=== PATIENT | male | born 1985 ===

== ENCOUNTER 2017-09-22 10:35 | Inpatient (IN) | payer BC ==
[2017-09-22] MEDS ORDERED: SODIUM CHLORIDE 0.9% 500 ML IV STA ×2 (11:03→12:24)
--- NOTE | 2017-09-22 11:08 | ED ---
General Adult HPI - General Chief complaint: Abdominal Pain Stated complaint: abdominal pain Source: patient Mode of arrival: ambulatory Limitations: no limitations - History of Present Illness Initial comments: Dictation was produced using [employer] dictation software. please excuse any grammatical, word or spelling errors. Chief Complaint: 32-year-old male with past medical history of appendectomy presents with right upper quadrant pain 5 days. History of Present Illness: Patient states that he has been having right upper quadrant pain for 5 days. He states the pain is intermittent and cramping. States that he's been feeling nauseated but no vomiting. Denies any fevers or confusion. Patient has been having some darker stools. Patient denies any radiation of the pain. States that it's intermittent and episodic without any mitigating or exacerbating factors. He is a tobacco abuser and chronic caffeine drinker. The ROS documented in this emergency department record has been reviewed and confirmed by me. Those systems with pertinent positive or negative responses have been documented in the HPI. All other systems are other negative and/or noncontributory. - Related Data Home Medications Medication Instructions Recorded Confirmed Naproxen Sodium [Aleve] 220 mg PO Q12HR PRN 09/22/17 09/22/17 Allergies Allergy/AdvReac Type Severity Reaction Status Date / Time No Known Allergies Allergy Verified 09/22/17 12:09 Review of Systems ROS Statement: Those systems with pertinent positive or pertinent negative responses have been documented in the HPI. ROS Other: All systems not noted in ROS Statement are negative. Past Medical History Past Medical History: No Reported History History of Any Multi-Drug Resistant Organisms: None Reported Past Surgical History: Appendectomy Past Psychological History: No Psychological Hx Reported Smoking Status: Current every day smoker Past Alcohol Use History: Occasional Past Drug Use History: None Reported General Exam - General Exam Comments Initial Comments: PHYSICAL EXAM: General Impression: Alert and oriented x3, not in acute distress HEENT: Normocephalic atraumatic, extra-ocular movements intact, pupils equal and reactive to light bilaterally, mucous membranes moist. Cardiovascular: Heart regular rate and rhythm, S1&S2 audible, no murmurs, rubs or gallops Chest: Lungs clear to auscultation bilaterally, no rhonchi, no wheeze, no rales Abdomen: Bowel sounds present, abdomen soft, tenderness in her right upper quadrant, positive Finn's sign Musculoskeletal: Pulses present and equal in all extremities, no peripheral edema Motor: Power 5/5 bilaterally, no focal deficits noted Neurological: CN II-XII grossly intact, no focal motor or sensory deficits noted Skin: Intact with no visualized rashes Psych: Normal affect and mood Limitations: no limitations Course Vital Signs 09/22/17 10:40 Temperature 97.8 F Pulse Rate 60 Respiratory 18 Rate Blood Pressure 165/110 O2 Sat by Pulse 100 Oximetry Medical Decision Making - Medical Decision Making ED course: 32-year-old male presents with chief complaint of right upper quadrant pain. Vital signs upon arrival are within acceptable limitsLaboratory evaluation obtained. CBC is unremarkable. Metabolic panel shows elevation in renal markers with a creatinine of 2.40 and BUNs 24. Rest metabolic panel is negative. Urinalysis is negative. It is unclear what is causing patient's elevation in renal markers. Presentation consistent with acute kidney injury. 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 He does not look clinically dehydrated. Ultrasound of the abdomen was obtained showing no acute processes. KUB shows nonspecific abdomen. Pending computed tomography scan. Patient be admitted for acute kidney injury. Consultation to nephrology was ordered. She given intravenous fluids. EKG interpretation: Ventricular rate 77, sinus bradycardia, NH interval 136, QS 94, QTC 410. No NH prolongation, no QTC prolongation, no ST or T-wave changes noted. Nonspecific isolated T-wave inversion in lead 3. Overall, this EKG is unremarkable - Lab Data Result diagrams: 09/22/17 11:05 09/22/17 11:05 Lab Results 09/22/17 09/22/17 09/22/17 Range/Units 11:05 11:05 11:05 WBC 10.3 (3.8-10.6) k/uL RBC 4.71 (4.30-5.90) m/uL Hgb 14.1 (13.0-17.5) gm/dL Hct 42.0 (39.0-53.0) % MCV 89.2 (80.0-100.0) fL MCH 29.9 (25.0-35.0) pg MCHC 33.5 (31.0-37.0) g/dL RDW 13.2 (11.5-15.5) % Plt Count 229 (150-450) k/uL Neutrophils % 73 % Lymphocytes % 18 % Monocytes % 6 % Eosinophils % 1 % Basophils % 0 % Neutrophils # 7.5 (1.3-7.7) k/uL Lymphocytes # 1.8 (1.0-4.8) k/uL Monocytes # 0.7 (0-1.0) k/uL Eosinophils # 0.1 (0-0.7) k/uL Basophils # 0.0 (0-0.2) k/uL Sodium 141 (137-145) mmol/L Potassium 4.7 (3.5-5.1) mmol/L Chloride 108 H (98-107) mmol/L Carbon Dioxide 22 (22-30) mmol/L Anion Gap 11 mmol/L BUN 24 H (9-20) mg/dL Creatinine 2.40 H (0.66-1.25) mg/dL Est GFR (CKD-EPI)AfAm 40 (>60 ml/min/1.73 sqM) Est GFR (CKD-EPI)NonAf 35 (>60 ml/min/1.73 sqM) Glucose 86 (74-99) mg/dL Calcium 9.4 (8.4-10.2) mg/dL Total Bilirubin 0.9 (0.2-1.3) mg/dL AST 42 (17-59) U/L ALT 51 (21-72) U/L Alkaline Phosphatase 110 (38-126) U/L Creatine Kinase 279 H (55-170) U/L Total Protein 7.6 (6.3-8.2) g/dL Albumin 4.5 (3.5-5.0) g/dL Lipase 61 (23-300) U/L Urine Color Urine Appearance (Clear) Urine pH (5.0-8.0) Ur Specific [place] (1.001-1.035) Urine Protein (Negative) Urine Glucose (UA) (Negative) Urine Ketones (Negative) Urine Blood (Negative) Urine Nitrite (Negative) Urine Bilirubin (Negative) Urine Urobilinogen (<2.0) mg/dL Ur Leukocyte Esterase (Negative) 09/22/17 Range/Units 11:40 WBC (3.8-10.6) k/uL RBC (4.30-5.90) m/uL Hgb (13.0-17.5) gm/dL Hct (39.0-53.0) % MCV (80.0-100.0) fL MCH (25.0-35.0) pg MCHC (31.0-37.0) g/dL RDW (11.5-15.5) % Plt Count (150-450) k/uL Neutrophils % % Lymphocytes % % Monocytes % % Eosinophils % % Basophils % % Neutrophils # (1.3-7.7) k/uL Lymphocytes # (1.0-4.8) k/uL Monocytes # (0-1.0) k/uL Eosinophils # (0-0.7) k/uL Basophils # (0-0.2) k/uL Sodium (137-145) mmol/L Potassium (3.5-5.1) mmol/L Chloride (98-107) mmol/L Carbon Dioxide (22-30) mmol/L Anion Gap mmol/L BUN (9-20) mg/dL Creatinine (0.66-1.25) mg/dL Est GFR (CKD-EPI)AfAm (>60 ml/min/1.73 sqM) Est GFR (CKD-EPI)NonAf (>60 ml/min/1.73 sqM) Glucose (74-99) mg/dL Calcium (8.4-10.2) mg/dL Total Bilirubin (0.2-1.3) mg/dL AST (17-59) U/L ALT (21-72) U/L Alkaline Phosphatase (38-126) U/L Creatine Kinase (55-170) U/L Total Protein (6.3-8.2) g/dL Albumin (3.5-5.0) g/dL Lipase (23-300) U/L Urine Color Light Yellow Urine Appearance Clear (Clear) Urine pH 5.5 (5.0-8.0) Ur Specific [place] 1.005 (1.001-1.035) Urine Protein Negative (Negative) Urine Glucose (UA) Negative (Negative) Urine Ketones Negative (Negative) Urine Blood Negative (Negative) Urine Nitrite Negative (Negative) Urine Bilirubin Negative (Negative) Urine Urobilinogen <2.0 (<2.0) mg/dL Ur Leukocyte Esterase Negative (Negative) Disposition Clinical Impression: Acute kidney injury Disposition: ADMITTED IP TO THIS [facility] Condition: Good Referrals: None,Stated [Primary Care Provider] - 1-2 days Time of Disposition: 13:58
[2017-09-22 11:16] LABS: Basophils % (A) 0 %; Eosinophils # (A) 0.1 k/uL (0-0.7); Eosinophils % (A) 1 %; HGB 14.1 gm/dL (13.0-17.5); Lymphocytes # (A) 1.8 k/uL (1.0-4.8); Lymphocytes % (A) 18 %; MCH 29.9 pg (25.0-35.0); MCHC 33.5 g/dL (31.0-37.0); MCV 89.2 fL (80.0-100.0); Mean Platelet Volume 7.2; Monocytes # (A) 0.7 k/uL (0-1.0); Monocytes % (A) 6 %; Neutrophils # (A) 7.5 k/uL (1.3-7.7); Neutrophils % (A) 73 %; Platelet Count 229 k/uL (150-450); RBC 4.71 m/uL (4.30-5.90); RDW 13.2 % (11.5-15.5); WBC 10.3 k/uL (3.8-10.6)
[2017-09-22 11:24] LABS: Albumin 4.5 g/dL (3.5-5.0); Calcium 9.4 mg/dL (8.4-10.2); Potassium 4.7 mmol/L (3.5-5.1); Total Bilirubin 0.9 mg/dL (0.2-1.3); Total Protein 7.6 g/dL (6.3-8.2)
[2017-09-22 11:53] LABS: Appearance,Urine Clear (Clear); Bilirubin,Urine Negative (Negative); Blood,Urine Negative (Negative); Color,Urine Light Yellow; Glucose,Urine (UA) Negative (Negative); Ketones,Urine Negative (Negative); Leukocyte Esterase,Urine Negative (Negative); Nitrite,Urine Negative (Negative); PH, Urine 5.5 (5.0-8.0); Protein,Urine Negative (Negative); Specific Gravity,Urine 1.005 (1.001-1.035); Urobilinogen,Urine <2.0 mg/dL (<2.0)
--- NOTE | 2017-09-22 11:56 | US ---
EXAMINATION TYPE: US abdomen complete DATE OF EXAM: 09/22/2017 COMPARISON: NONE CLINICAL HISTORY: abdominal pain. Abdomen pain and nausea x 5 days, history of appendectomy EXAM MEASUREMENTS: Liver Length: 13.7 cm Gallbladder Wall: 0.2 cm CBD: 0.4 cm Spleen: 10.4 cm Right Kidney: 12.1 x 5.7 x 5.6 cm Left Kidney: 11.9 x 5.4 x 5.8 cm Pancreas: obscured by overlying midline bowel gas Liver: wnl Gallbladder: wnl Evidence for sonographic Finn's sign: no CBD: visualized portions wnl, limited by overlying bowel gas Spleen: wnl Right Kidney: wnl Left Kidney: wnl Upper IVC: wnl Abd Aorta: visualized portions wnl, limited by overlying midline bowel gas IMPRESSION: 1. No acute process.
--- NOTE | 2017-09-22 11:58 | XR ---
EXAMINATION TYPE: XR KUB DATE OF EXAM: 09/22/2017 COMPARISON: NONE HISTORY: Right upper quadrant pain TECHNIQUE: One view abdominal series FINDINGS: The osseous structures are intact. The bowel gas pattern is nonspecific. Few prominent small bowel l oops are seen in the abdomen with an air-fluid level in the midabdomen. Lung bases are clear. IMPRESSION: 1. Nonspecific abdomen. There are few air-fluid levels and prominent small bowel loops in the abdome n which could be seen with an enteritis or ileus. Partial obstruction not entirely excluded, correlat e clinically.
[2017-09-22] MEDS ORDERED: NALOXONE 0.4 MG/ML 1 ML VIAL IV PRN (13:56)
[2017-09-22] MEDS ORDERED: SODIUM CHLORIDE 0.9% 1,000 ML IV STA (14:01)
--- NOTE | 2017-09-22 14:02 | CT ---
EXAMINATION TYPE: CT abdomen pelvis wo con DATE OF EXAM: 09/22/2017 HISTORY: RUQ pain CT DLP: 692 mGycm. Automated Exposure Control for Dose Reduction was Utilized. TECHNIQUE: CT scan of the abdomen and pelvis is performed without oral or IV contrast. COMPARISON: Complete abdominal ultrasound earlier today FINDINGS: Within the limitations of a non-contrast study, the following observations are made. LUNG BASES: Dependent atelectasis in both bases is present. There is additional patchy bibasilar line ar scarring and/or atelectasis. LIVER/GB: No inflammatory change surrounding the gallbladder. PANCREAS: No significant abnormality is seen. SPLEEN: No significant abnormality is seen. ADRENALS: No significant abnormality is seen. KIDNEYS: No renal stones or hydronephrosis is present bilaterally. BOWEL: Evaluation of bowel is suboptimal secondary to lack of enteric contrast. There is no suspiciou s small or large bowel dilatation. Appendix is not seen with certainty but there is no evidence of in flammatory change at base of cecum. GENITAL ORGANS: No gross abnormality seen. LYMPH NODES: No greater than 1cm abdominal or pelvic lymph nodes are appreciated. OSSEOUS STRUCTURES: No significant abnormality is seen. OTHER: Suspected dystrophic calcification in the upper pelvis is seen best coronal image 33 just supe rior to the bladder. IMPRESSION: No bowel obstruction is seen. No suspicious acute finding on noncontrast CT.
[2017-09-22] MEDS: MORPHINE SULFATE 4 MG/ML SYRINGE IVP PRN ×2 (15:43→20:08)
--- NOTE | 2017-09-22 16:33 | US ---
EXAMINATION TYPE: US kidneys/renal and bladder DATE OF EXAM: 09/22/2017 COMPARISON: CT abdomen and pelvis earlier today CLINICAL HISTORY: RUQ pain with acute kidney injury. high BP, patient states it is always high and hi s physician never says anything about it, not on medication for HTN, per Dr Jaffe's request did ass essment to r/o renal artery clot EXAM MEASUREMENTS: Right Kidney: 11.3 x 6.4 x 5.8 cm Left Kidney: 12.2 x 4.1 x 6.8 cm Right Kidney: No hydronephrosis or masses seen, patency seen within distal portion of the renal arter y at level of renal pelvis Left Kidney: No hydronephrosis or masses seen, patency seen within distal portion of the renal artery at level of renal pelvis Bladder: pt voided just prior to exam There is no evidence for hydronephrosis at this point in time. No nephrolithiasis is seen. No tammie s are identified. The urinary bladder is suboptimally evaluated due to poor distention. IMPRESSION: No hydronephrosis is evident bilaterally. Satisfactory blood flow in bilateral distal renal arteries at renal hilum level is documented.
[2017-09-22 16:56] VITALS: BMI 29.0
[2017-09-22] MEDS ORDERED: HYDROcodone/APAP 5-325MG 1 EACH TAB PO STA (17:52)
[2017-09-22] MEDS: PANTOPRAZOLE 40 MG/10 ML VIAL IVP SCH (20:09)
--- NOTE | 2017-09-22 23:30 | P.HPIM ---
History of Present Illness H&P Date: 09/22/17 Chief Complaint: Right upper quadrant pain Patient is a 32-year-old male without significant past history came to ER with complaints of abdominal pain mainly in the right upper quadrant which has been present for the past 5-6 days. Pain is intermittent and crampy. Patient has been playing nauseated and no episodes of vomiting otherwise. Denied diarrhea. Denied any fever or chills. Denied any jaundice. No complaints of chest pain or shortness of breath. Patient has been taking Aleve to improve pain for the past 3 days. Patient notices some darker stools recently. No radiation of the pain. No alcohol use. Patient otherwise a tobacco user and caffeine drinker. No cough or sputum production. KUB x-ray showed nonspecific abdominal. there are few air fluid levels prominent small bowel loops in the abdomen which could be seen with a antritis or ileus. Possible obstruction cannot be excluded. Ultrasound kidney showed no hydronephrosis is evident bilaterally. Ultrasound ABDOMEN showed no acute process CT abdomen and pelvis without contrast showed no bowel obstruction. no suspicious acute abdominal findings. Hemoglobin 14.1 BUN 24 , creatinine 2.4 Review of Systems Constitutional: Patient denies any fever or chills . No generalized weakness or weight loss. Abdomen: Patient does have right upper quadrant pain. And nausea. Cardiovascular: Patient denies any chest pain or short of breath no palpitations. Respiratory: patient denied any cough is from production. No shortness of breath Neurologic: Patient denied any numbness or tingling headache. Musculoskeletal: Patient denies any complaints of joint swelling or deformity. Skin: Negative Psychiatric: Negative Endocrine: No heat or cold intolerance. No recent weight gain. Genitourinary: No dysuria or hematuria. All other 14 point ROS negative except the above Past Medical History Past Medical History: No Reported History History of Any Multi-Drug Resistant Organisms: None Reported Past Surgical History: Appendectomy Past Psychological History: No Psychological Hx Reported Smoking Status: Current every day smoker Past Alcohol Use History: Occasional Past Drug Use History: None Reported - Past Family History Father Family Medical History: Diabetes Mellitus Medications and Allergies Home Medications Medication Instructions Recorded Confirmed Type Naproxen Sodium [Aleve] 220 mg PO Q12HR PRN 09/22/17 09/22/17 History Allergies Allergy/AdvReac Type Severity Reaction Status Date / Time No Known Allergies Allergy Verified 09/22/17 12:09 Physical Exam Vitals: Vital Signs Temp Pulse Resp BP Pulse Ox 09/22/17 16:00 70 18 150/88 100 09/22/17 15:26 98.0 F 77 18 151/86 100 09/22/17 10:40 97.8 F 60 18 165/110 100 Intake and Output 09/22/17 09/22/17 09/22/17 06:59 14:59 22:59 Other: Weight 79.379 kg PHYSICAL EXAMINATION: Patient is lying in the bed comfortably, no acute distress, awake alert and oriented.. HEENT: Normocephalic. Neck is supple. Pupils reactive. Nostrils clear. Oral cavity is moist. Ears reveal no drainage. Neck reveals no JVD, carotid bruits, or thyromegaly. CHEST EXAMINATION: Trachea is central. Symmetrical expansion. Lung potter clear to auscultation and percussion. CARDIAC: Normal S1, S2 with no gallops. No murmurs ABDOMEN: Soft. Right upper quadrant tenderness. No guarding no rigidity. Bowel sounds normal. No organomegaly. No abdominal bruits. Extremities: reveal no edema. No clubbing or cyanosis Neurologically awake, alert, oriented x3 with well-coordinated movements. No focal deficits noted Skin: No rash or skin lesions. Psychiatric: Coperative. Nonsuicidal Musculoskeletal: No joint swelling or deformity. Normal range of motion. Results CBC & Chem 7: 09/22/17 11:05 09/22/17 11:05 Labs: Abnormal Lab Results - Last 24 Hours (Table) 09/22/17 09/22/17 Range/Units 11:05 11:05 Chloride 108 H (98-107) mmol/L BUN 24 H (9-20) mg/dL Creatinine 2.40 H (0.66-1.25) mg/dL Creatine Kinase 279 H (55-170) U/L Thrombosis Risk Factor Assmnt - DVT/VTE Prophylaxis DVT/VTE Prophylaxis: Pharmacologic Prophylaxis ordered Assessment and Plan Assessment: Right upper quadrant pain. Possible peptic ulcer disease. Workup including KUB x-ray, ultrasound abdomen and CT abdomen is negative. No elevated liver enzymes, lipase and amylase. Patient will be started on PPI and pain management. Check FOBT. Consider GI consultation. Acute kidney injury. Due to volume depletion and possible medication induced. Consulted nephrology. Current with the fluids and repeat levels tomorrow. DVT prophylaxis with SCDs Time with Patient: Greater than 30
[2017-09-23] MEDS: MORPHINE SULFATE 4 MG/ML SYRINGE IVP PRN ×5 (01:52→19:13)
[2017-09-23] MEDS: PANTOPRAZOLE 40 MG/10 ML VIAL IVP SCH (08:19)
[2017-09-23 08:22] LABS: Basophils % (A) 0 %; Eosinophils # (A) 0.1 k/uL (0-0.7); Eosinophils % (A) 1 %; HCT 40.5 % (39.0-53.0); HGB 13.5 gm/dL (13.0-17.5); Lymphocytes # (A) 1.4 k/uL (1.0-4.8); Lymphocytes % (A) 16 %; MCH 29.9 pg (25.0-35.0); MCHC 33.4 g/dL (31.0-37.0); MCV 89.7 fL (80.0-100.0); Mean Platelet Volume 7.2; Monocytes # (A) 0.6 k/uL (0-1.0); Monocytes % (A) 7 %; Neutrophils # (A) 6.5 k/uL (1.3-7.7); Neutrophils % (A) 74 %; Platelet Count 218 k/uL (150-450); RBC 4.52 m/uL (4.30-5.90); WBC 8.7 k/uL (3.8-10.6)
[2017-09-23 08:38] LABS: Calcium 8.4 mg/dL (8.4-10.2); Potassium 5.8 mmol/L (3.5-5.1)
--- NOTE | 2017-09-23 12:48 | P.NPCON ---
History of Present Illness - Reason for Consult Consult date: 09/23/17 acute renal failure - Chief Complaint Acute kidney injury - History of Present Illness This is a 32-year-old male seen in consultation because of an elevated creatinine. He came in with a 5-6 days history of right upper quadrant pain which was fairly severe and non-remitting. No radiation. No history of hematuria kidney stones no family history of kidney disease. He did take Aleve for a few days. No history of taking any antibiotics. No nausea vomiting diarrhea. No history of any bladder dysfunction. He has had appendectomy in the past. Extensive workup has revealed no significant explanation for his right upper quadrant pain. Amylase lipase normal ultrasound of the abdomen and computed tomography scan of the abdomen was unremarkable except for a possible phlebolith in the upper pelvis just superior to the bladder area. No hydronephrosis no gallstones or kidney stones. His past history is unremarkable. He works building complains. No history of taking any herbs, substance abuse. No history of taking creatinine Past Medical History Past Medical History: No Reported History History of Any Multi-Drug Resistant Organisms: None Reported Past Surgical History: Appendectomy Past Anesthesia/Blood Transfusion Reactions: No Reported Reaction Past Psychological History: No Psychological Hx Reported Smoking Status: Current every day smoker Past Alcohol Use History: Occasional Past Drug Use History: None Reported - Past Family History Father Family Medical History: Diabetes Mellitus Medications and Allergies Home Medications Medication Instructions Recorded Confirmed Type Naproxen Sodium [Aleve] 220 mg PO Q12HR PRN 09/22/17 09/22/17 History Allergies Allergy/AdvReac Type Severity Reaction Status Date / Time No Known Allergies Allergy Verified 09/22/17 12:09 Physical Exam Vitals: Vital Signs Temp Pulse Pulse Resp BP BP Pulse Ox 09/23/17 06:00 97.0 F L 69 14 104/67 99 09/22/17 23:00 98.0 F 60 14 140/84 99 09/22/17 16:30 98.3 F 58 L 20 146/90 100 09/22/17 16:00 70 18 150/88 100 09/22/17 15:26 98.0 F 77 18 151/86 100 Intake and Output 09/22/17 09/23/17 09/23/17 22:59 06:59 14:59 Other: Weight 79 kg On examination he is a well-built healthy looking young male. HEENT exam no JVP lymphadenopathy thyromegaly neck is supple no facial asymmetry Lungs are clear to auscultation good air entry bilaterally Heart sounds are unremarkable for any murmur rub gallop Abdomen soft nontender but, Finn's signugh ultrasound and computed tomography scan did not show any gallstones or cholecystitis. Extremity exam was no edema warm to touch no skin rashes Neurologically awake alert oriented. Results - Lab Results Most recent lab results Calcium 8.4 mg/dL (8.4-10.2) 09/23/17 07:53 09/23/17 07:53 09/23/17 07:53 Assessment and Plan Assessment: Impression 1. Acute kidney injury, likely secondary to nonsteroidal use. May be an element of volume depletion from decreased intake from the right upper quadrant pain. 2. Hyperkalemia secondary acute kidney injury and nonsteroidal use. 3. No previous creatinines available's. 4. Right upper quadrant pain for 7 days with normal workup and no good explanation. Possible duodenal ulcer is a consideration. Recommendation 1. Continue IV fluids normal saline at 100 and hour for the next 24 hours. 2. Avoid all nephrotoxic medications and diet studies. 3. Workup for right upper quadrant pain is underway with a GI consult for possible EGD. 4. Will monitor at lites been creatinine tomorrow. If there is no improvement or worsening we'll consider biopsying his kidney and further doing serological workup Thank you for this consultation and continue follow with you closely
[2017-09-23] MEDS: SODIUM CHLORIDE 0.45% 1,000 ML IV SCH (13:16)
[2017-09-24] MEDS: SODIUM CHLORIDE 0.45% 1,000 ML IV SCH ×2 (06:09→16:26)
[2017-09-24] MEDS ORDERED: LIDOCAINE 1% INJ 10MG/ML (20 ML MDV) ONE (07:15)
[2017-09-24] MEDS ORDERED: PROPOFOL 10 MG/ML 20 ML VIAL IV ONE (07:15)
[2017-09-24] MEDS ORDERED: IV FLUID CONTINUATION 1,000 ML IV ONE (07:16)
--- NOTE | 2017-09-24 07:40 | P.PCN ---
Date of Procedure: 09/24/17 Procedure(s) Performed: Procedure: Esophagogastroduodenoscopy and biopsy. Preoperative diagnosis: Unexplained abdominal pain, rule out peptic ulcer disease. Postoperative diagnosis: 1. Mild gastritis and duodenitis with no ulcers or gastric outlet obstruction. 2. Biopsies obtained from the duodenum, antrum and esophagus. Preparation and sedation: Was provided by anesthesia. Brief clinical history: The patient is a 32-year-old male who was admitted through the emergency Department with the complaint of abdominal pain of 5 days duration. The patient takes Aleve for joint aches and was found to have renal insufficiency believed to be related to NSAID use. His workup, otherwise, did not reveal any explanation of his abdominal pain and that included blood workup , urine studies and CT. Some attributes of his pain raised the possibility of peptic ulcer disease especially in light of his use of Aleve. The pain was waking him up between 2 and 3 AM in the morning. This evaluation is scheduled to rule out peptic ulcer disease. Other details are summarized in the history and physical and dictated consultation and progress notes. Procedure: With the patient on his left lateral decubitus position and after informed consent and adequate sedation, I passed the Olympus-GIF 160 video upper endoscope through the cricopharyngeus down the esophagus. GE junction was around 40 cm from the incisors and there was no definite hiatal hernia. The endoscope was then passed into the stomach which was insufflated with air and inspected in detail including the retroflex view in the cardia. Finally, the endoscope was passed through the pylorus into the duodenum. Pyloric channel did not show any ulcers. Duodenal bulb did not show any ulcers and there was only minimal mottling and erythema and minimal friability. Post bulbar area and descending duodenum appeared normal. The stomach showed mottling and erythema involving the antrum but no ulcers or erosions. The esophagus did not show any obvious abnormalities. Because of his symptoms, I obtained biopsies from the duodenum, antrum and esophagus then the endoscope was withdrawn. The patient tolerated the procedure well. Plan: The patient was reassured. Will allow diet. Await biopsy results. I have no explanation for his abdominal pain and we will continue to watch closely and follow-up the evolution of his symptoms.
--- NOTE | 2017-09-24 07:55 | P.CONS ---
History of Present Illness - Reason for Consult Consult date: 09/23/17 Abdominal pain - History of Present Illness The patient is a 32-year-old male who was admitted through the emergency Department with the complaint of abdominal pain of 5 days duration. The patient was described to involve the right side of the abdomen. There was no associated nausea, vomiting, change in bowel habits hematemesis,melena or hematochezia. No urinary symptoms. The patient takes Aleve for joint aches and was found to have renal insufficiency believed to be related to NSAID use. His workup, otherwise, did not reveal any explanation of his abdominal pain and that included blood workup, urine studies and CT. Some attributes of his pain raised the possibility of peptic ulcer disease especially in light of his use of Aleve. The pain was waking him up between 2 and 3 AM in the morning. Review of Systems Constitutional: Denies fever, chills or unintentional weight loss Neurologic: No headaches, double vision or any sensory or motor changes Cardiopulmonary: No chest pains, shortness of breath or palpitations Gastrointestinal: See present illness above Genitourinary: No hematuria, dysuria or frequency. Renal insufficiency noted this admission could be secondary to NSAID use Musculoskeletal: No joint swelling. Have generalized joint aches for which she takes Aleve Endocrine: No history of diabetes or thyroid disease Skin: No rashes Hematologic: No anemia or bleeding tendency Psychiatric: No anxiety or depression Past Medical History Past Medical History: No Reported History History of Any Multi-Drug Resistant Organisms: None Reported Past Surgical History: Appendectomy Past Anesthesia/Blood Transfusion Reactions: No Reported Reaction Past Psychological History: No Psychological Hx Reported Smoking Status: Current every day smoker Past Alcohol Use History: Occasional Past Drug Use History: None Reported - Past Family History Father Family Medical History: Diabetes Mellitus Medications and Allergies Home Medications Medication Instructions Recorded Confirmed Type Naproxen Sodium [Aleve] 220 mg PO Q12HR PRN 09/22/17 09/22/17 History Allergies Allergy/AdvReac Type Severity Reaction Status Date / Time No Known Allergies Allergy Verified 09/22/17 12:09 Physical Exam Vitals: Vital Signs Temp Pulse Pulse Resp BP BP Pulse Ox 09/23/17 14:20 98.0 F 77 18 123/73 99 09/23/17 06:00 97.0 F L 69 14 104/67 99 09/22/17 23:00 98.0 F 60 14 140/84 99 08/17/18 16:30 98.3 F 58 L 20 146/90 100 09/22/17 16:00 70 18 150/88 100 General: Appears stated age, very pleasant, in no acute distress Neck: Normocephalic and atraumatic, conjunctivae pink and sclerae not icteric, mucous membranes moist and pink. No masses in the neck or tracheal shifts Lungs: Clear to auscultation with no dullness to percussion Heart: Regular, no abnormal sounds, gallops or friction rubs Abdomen: Soft, no tenderness, bowel sounds present. No masses or organomegalies Extremities: No clubbing, cyanosis or edema Neurologic: Alert and oriented 3, cranial nerves grossly intact, no gross sensory or motor abnormalities Results CBC & Chem 7: 09/23/17 07:53 09/23/17 07:53 Labs: Abnormal Lab Results - Last 24 Hours (Table) 09/23/17 Range/Units 07:53 Potassium 5.8 H (3.5-5.1) mmol/L Chloride 113 H (98-107) mmol/L BUN 22 H (9-20) mg/dL Creatinine 2.68 H (0.66-1.25) mg/dL Assessment and Plan Assessment: Abdominal pain could be on the basis of peptic ulcer disease especially in light of his use of Aleve. Other possibilities to keep in mind in the absence of other findings are musculoskeletal pain including the pre-eruption phase of herpes zoster. It is unlikely that we are dealing with inflammatory bowel disease but this should be kept in mind. Plan: Will proceed with EGD in a.m. Further plans based on his course and the findings on endoscopy.
[2017-09-24] MEDS: PANTOPRAZOLE 40 MG/10 ML VIAL IVP SCH (08:27)
[2017-09-24] MEDS: MORPHINE SULFATE 4 MG/ML SYRINGE IVP PRN ×2 (08:30→12:34)
--- NOTE | 2017-09-24 11:13 | P.PN ---
Subjective Progress Note Date: 09/24/17 Principal diagnosis: This is a 32-year-old male seen in consultation because of an elevated creatinine. He came in with fairly severe right upper quadrant pain. No previous creatinines available therefore the elevation in creatinine with that is chronic or acute is unclear although in the hospital he is continuing to worsen Acute kidney injury was deemed to be from nonsteroidals that he took for a few days because of this abdominal pain. His urinalysis was benign. His creatinine though has continued to go up. He is completely asymptomatic except for the right upper quadrant pain which is improved 50% but not resolved. Extensive workup has been negative including ultrasound and CT scans of the abdomen. No diarrhea was used. In EGD shows mild chest gastritis which is unlikely to explain his pain. No family history of kidney disease. No history of hematuria. He looks very healthy he is well-built and has no rash. No history of taking any cocaine, herbs. Denies any previous creatinines though. Not sure whether this is acute or chronic Objective - Vital Signs Vital signs: Vital Signs Temp 97.7 F 09/24/17 08:00 Pulse 71 09/24/17 08:15 Resp 18 09/24/17 08:00 BP 141/79 09/24/17 08:15 Pulse Ox 99 09/24/17 08:15 Intake & Output 09/23/17 09/24/17 09/24/17 18:59 06:59 18:59 Intake Total 1800 50 Balance 1800 50 Intake: IV 50 Oral 1800 Other: # Voids 4 On examination is awake alert oriented comfortable. He looks healthy. HEENT exam no JVP neck is supple no facial asymmetry Lungs clear to auscultation percussion good air entry bilaterally Heart sounds unremarkable for any murmur rub gallop. Abdomen is soft nontender no organomegaly ascites masses. Extremity exam was no edema There is no skin rash anywhere. No joint problems. Neurologically awake alert oriented. - Labs CBC & Chem 7: 09/23/17 07:53 09/24/17 09:53 Labs: Abnormal Lab Results - Last 24 Hours (Table) 09/24/17 Range/Units 09:53 Chloride 112 H (98-107) mmol/L BUN 26 H (9-20) mg/dL Creatinine 2.92 H (0.66-1.25) mg/dL Assessment and Plan Assessment: Impression 1. Acute kidney injury, likely secondary to nonsteroidal use. May be an element of volume depletion from decreased intake from the right upper quadrant pain. The cause of this worsening creatinine and therefore is not very clear, most likely still it is the same diagnosis but we may have to proceed with biopsy. I have discussed this with the patient in detail. He is agreed to proceed. We will wait for labs tomorrow and see if there is stability or improvement in which case will cancel the biopsy 2. Hyperkalemia secondary acute kidney injury and nonsteroidal use. Resolved 3. No previous creatinines available's. Un known what his baseline is 4. Right upper quadrant pain for 7 days with normal workup and no good explanation. Ultrasound CAT scan and EEG are not able to explain the pain adequately. Recommendation 1. Continue IV fluids half normal saline at 75 mL / hours. 2. Avoid all nephrotoxic medications and diet studies. 3. Will monitor at lites been creatinine tomorrow. If there is no improvement or worsening we'll consider biopsying 4. Serological workup has been ordered. 5. PT/INR has been ordered. 6. I'll look at his urine myself and Thank you for this consultation and continue follow with you closely
[2017-09-24 12:10] LABS: INR 1.1 (<1.2); Prothrombin Time 10.3 sec (9.0-12.0)
[2017-09-24 12:11] LABS: Phosphorus 5.4 mg/dL (2.5-4.5); Uric Acid 7.2 mg/dL (3.5-8.5)
[2017-09-24] MEDS: LIDOCAINE 5% PATCH TOPICAL SCH (16:25)
--- NOTE | 2017-09-24 23:13 | P.PN ---
Subjective Progress Note Date: 09/23/17 Principal diagnosis: Acute kidney injury Patient is a 32-year-old male without significant past history came to ER with complaints of abdominal pain mainly in the right upper quadrant which has been present for the past 5-6 days. Pain is intermittent and crampy. Patient has been playing nauseated and no episodes of vomiting otherwise. Denied diarrhea. Denied any fever or chills. Denied any jaundice. No complaints of chest pain or shortness of breath. Patient has been taking Aleve to improve pain for the past 3 days. Patient notices some darker stools recently. No radiation of the pain. No alcohol use. Patient otherwise a tobacco user and caffeine drinker. No cough or sputum production. KUB x-ray showed nonspecific abdominal. there are few air fluid levels prominent small bowel loops in the abdomen which could be seen with a antritis or ileus. Possible obstruction cannot be excluded. Ultrasound kidney showed no hydronephrosis is evident bilaterally. Ultrasound ABDOMEN showed no acute process CT abdomen and pelvis without contrast showed no bowel obstruction. no suspicious acute abdominal findings. Hemoglobin 14.1 BUN 24 , creatinine 2.4 8. 2018 Patient is still having right upper quadrant pain. Patient was seen by GI and recommended EGD tomorrow. Otherwise renal function worsened with creatinine increased to 2.6. Nephrology has seen the patient. Continue with IV fluids and repeat creatinine level tomorrow. No fever no chills. No nausea vomiting. Tolerating oral diet. No other acute overnight issues. Current medications reviewed Objective - Vital Signs Vital signs: Vital Signs Temp 98.0 F 09/23/17 14:20 Pulse 77 09/23/17 14:20 Resp 18 09/23/17 14:20 BP 123/73 09/23/17 14:20 Pulse Ox 99 09/23/17 14:20 - Exam PHYSICAL EXAMINATION: Patient is lying in the bed comfortably, no acute distress, awake alert and oriented.. HEENT: Normocephalic. Neck is supple. Pupils reactive. Nostrils clear. Oral cavity is moist. Ears reveal no drainage. Neck reveals no JVD, carotid bruits, or thyromegaly. CHEST EXAMINATION: Trachea is central. Symmetrical expansion. Lung potter clear to auscultation and percussion. CARDIAC: Normal S1, S2 with no gallops. No murmurs ABDOMEN: Soft. Bowel sounds normal. No organomegaly. No abdominal bruits. Extremities: reveal no edema. No clubbing or cyanosis Neurologically awake, alert, oriented x3 with well-coordinated movements. No focal deficits noted Skin: No rash or skin lesions. Psychiatric: Coperative. Nonsuicidal Musculoskeletal: No joint swelling or deformity. Normal range of motion. - Labs CBC & Chem 7: 09/23/17 07:53 09/24/17 09:53 Labs: Abnormal Lab Results - Last 24 Hours (Table) 09/23/17 Range/Units 07:53 Potassium 5.8 H (3.5-5.1) mmol/L Chloride 113 H (98-107) mmol/L BUN 22 H (9-20) mg/dL Creatinine 2.68 H (0.66-1.25) mg/dL Assessment and Plan Assessment: Right upper quadrant pain. Possible peptic ulcer disease. Workup including KUB x-ray, ultrasound abdomen and CT abdomen is negative. No elevated liver enzymes, lipase and amylase. Patient will be started on PPI and pain management. Check FOBT. GI is planning for EGD tomorrow.. Acute kidney injury. Due to volume depletion and possible medication induced. Consulted nephrology. Current with the fluids and repeat levels tomorrow. DVT prophylaxis with SCDs Time with Patient: Greater than 30
--- NOTE | 2017-09-24 23:21 | P.PN ---
Subjective Progress Note Date: 09/24/17 Principal diagnosis: Acute kidney injury Patient is a 32-year-old male without significant past history came to ER with complaints of abdominal pain mainly in the right upper quadrant which has been present for the past 5-6 days. Pain is intermittent and crampy. Patient has been playing nauseated and no episodes of vomiting otherwise. Denied diarrhea. Denied any fever or chills. Denied any jaundice. No complaints of chest pain or shortness of breath. Patient has been taking Aleve to improve pain for the past 3 days. Patient notices some darker stools recently. No radiation of the pain. No alcohol use. Patient otherwise a tobacco user and caffeine drinker. No cough or sputum production. KUB x-ray showed nonspecific abdominal. there are few air fluid levels prominent small bowel loops in the abdomen which could be seen with a antritis or ileus. Possible obstruction cannot be excluded. Ultrasound kidney showed no hydronephrosis is evident bilaterally. Ultrasound ABDOMEN showed no acute process CT abdomen and pelvis without contrast showed no bowel obstruction. no suspicious acute abdominal findings. Hemoglobin 14.1 BUN 24 , creatinine 2.4 82017 Patient is still having right upper quadrant pain. Patient was seen by GI and recommended EGD tomorrow. Otherwise renal function worsened with creatinine increased to 2.6. Nephrology has seen the patient. Continue with IV fluids and repeat creatinine level tomorrow. No fever no chills. No nausea vomiting. Tolerating oral diet. No other acute overnight issues. 2017 Patient had EGD done today showed mild gastritis and mild duodenitis. Otherwise right upper quad pain is slightly better. Creatinine increased to 2.9 today. Patient is being continued on IV fluids and nephrology is his following. No complaints of chest pain or shortness of breath. No nausea vomiting or abdominal pain. Tolerating oral diet. Current medications reviewed Objective - Vital Signs Vital signs: Vital Signs Temp 98.3 F 09/24/17 14:57 Pulse 72 09/24/17 14:57 Resp 18 09/24/17 14:57 BP 140/95 09/24/17 14:57 Pulse Ox 97 09/24/17 14:57 Intake & Output 09/24/17 09/24/17 09/25/17 06:59 18:59 06:59 Intake Total 1850 Output Total 2170 Balance -320 Intake: IV 50 Oral 1800 Output: Urine 2170 Other: # Voids 3 - Exam PHYSICAL EXAMINATION: Patient is lying in the bed comfortably, no acute distress, awake alert and oriented.. HEENT: Normocephalic. Neck is supple. Pupils reactive. Nostrils clear. Oral cavity is moist. Ears reveal no drainage. Neck reveals no JVD, carotid bruits, or thyromegaly. CHEST EXAMINATION: Trachea is central. Symmetrical expansion. Lung potter clear to auscultation and percussion. CARDIAC: Normal S1, S2 with no gallops. No murmurs ABDOMEN: Soft. Mild right upper quadrant tenderness. Bowel sounds normal. No organomegaly. No abdominal bruits. Extremities: reveal no edema. No clubbing or cyanosis Neurologically awake, alert, oriented x3 with well-coordinated movements. No focal deficits noted Skin: No rash or skin lesions. Psychiatric: Coperative. Nonsuicidal Musculoskeletal: No joint swelling or deformity. Normal range of motion. - Labs CBC & Chem 7: 09/23/17 07:53 09/24/17 09:53 Labs: Abnormal Lab Results - Last 24 Hours (Table) 09/24/17 09/24/17 Range/Units 09:53 11:40 Chloride 112 H (98-107) mmol/L BUN 26 H (9-20) mg/dL Creatinine 2.92 H (0.66-1.25) mg/dL Phosphorus 5.4 H (2.5-4.5) mg/dL Lactate Dehydrogenase 646 H (313-618) U/L Assessment and Plan Assessment: Right upper quadrant pain. Likely due to duodenitis. Workup including KUB x- ray, ultrasound abdomen and CT abdomen is negative. No elevated liver enzymes, lipase and amylase. Patient will be started on PPI and pain management. Check FOBT. Status post EGD showed mild gastritis and mild duodenitis.. Acute kidney injury. Due to volume depletion and possible medication induced- nonsteroidal. Not sure whether patient has underlying chronic kidney disease. No protein urine. Continued on IV fluids and repeat that level tomorrow. See a workup including ANCA, ELISHA, C3-C4 were ordered. Nephrology is planning for biopsy if the workup is negative. Avoid nephrotoxic medications. will change PPI to Pepcid. DVT prophylaxis with SCDs Time with Patient: Greater than 30
[2017-09-25] MEDS: SODIUM CHLORIDE 0.45% 1,000 ML IV SCH ×2 (06:32→13:56)
[2017-09-25] MEDS: LIDOCAINE 5% PATCH TOPICAL SCH (08:02)
[2017-09-25 08:31] LABS: Calcium 9.2 mg/dL (8.4-10.2); Potassium 5.4 mmol/L (3.5-5.1)
[2017-09-25] MEDS ORDERED: FAMOTIDINE 20 MG TAB PO SCH ×2 (09:00→10:28)
[2017-09-25] MEDS ORDERED: DESMOPRESSIN ACETATE 24 MCG in SODIUM CHLORIDE 0.9% 50 ML IVPB ONE (09:18)
--- NOTE | 2017-09-25 10:47 | P.PN ---
Subjective patient is seen in follow-up for acute kidney injury. Renal function continues to worsen with creatinine of 3.04 today. He is tolerating oral intake. No abdominal pain. No vomiting or diarrhea. Hemodynamically stable. Vital signs are stable. General: The patient appeared well nourished and normally developed. HEENT: Head exam is unremarkable. Neck is without jugular venous distension. LUNGS: Lungs are clear to auscultation and percussion. Breath sounds decreased. HEART: Rate and Rhythm are regular. First and second heart sounds normal. No murmurs, rubs or gallops. ABDOMEN: Abdominal exam reveals normal bowel sounds. Non-tender and non- distended. No evidence of peritonitis. EXTREMITITES: No clubbing, cyanosis, or edema. Objective - Vital Signs Vital signs: Vital Signs Temp 98.1 F 09/25/17 07:00 Pulse 63 09/25/17 07:00 Resp 18 09/25/17 07:00 BP 132/77 09/25/17 07:00 Pulse Ox 99 09/25/17 07:00 Intake & Output 09/24/17 09/25/17 09/25/17 18:59 06:59 18:59 Intake Total 1850 50 Output Total 2170 475 2350 Balance -320 475 -2300 Intake: IV 50 Intake, IV Titration 50 Amount Desmopressin Acetate 24 50 mcg In Sodium Chloride 0. 9% 50 ml @ 200 mls/hr IVPB ONCE ONE Rx#: [id number] Oral 1800 Output: Urine 2170 475 2350 Other: # Voids 3 1 - Labs CBC & Chem 7: 09/23/17 07:53 09/25/17 07:40 Labs: Abnormal Lab Results - Last 24 Hours (Table) 09/24/17 09/25/17 Range/Units 11:40 07:40 Sodium 146 H (137-145) mmol/L Potassium 5.4 H (3.5-5.1) mmol/L Chloride 112 H (98-107) mmol/L BUN 33 H (9-20) mg/dL Creatinine 3.04 H (0.66-1.25) mg/dL Phosphorus 5.4 H (2.5-4.5) mg/dL Lactate Dehydrogenase 646 H (313-618) U/L Assessment and Plan Plan: assessment: 1. Nonoliguric acute kidney injury likely secondary to ATN from nonsteroidals. Creatinine up to 3.04 today. Urinalysis is benign. Unknown baseline creatinine. 2. Mild hypernatremia from lack of oral water intake. 3. Mild hyperkalemia from acute kidney injury. No evidence of hyperglycemia or metabolic acidosis. 4. Right upper quadrant pain status post EGD which revealed mild gastritis and duodenitis. Resolved. Now tolerating oral intake. Plan: Continue half-normal saline at 75 mL an hour. Encourage oral intake. IV DDAVP prior to kidney biopsy. Kidney biopsy today. Repeat electrolytes in the morning.
[2017-09-25 11:48] LABS: DNA Double-Stranded NEGATIVE (NEGATIVE)
[2017-09-25] MEDS ORDERED: HYDROmorphone 1 MG/ML 1 ML SYRINGE IVP ONE (12:15)
[2017-09-25] MEDS ORDERED: HYDROmorphone 1 MG/ML 1 ML SYRINGE IVP STA ×2 (12:55→12:57)
--- NOTE | 2017-09-25 13:08 | CT ---
DATE OF EXAM: 09/25/2017 COMPARISON: NONE CT DLP: 967 mGycm HISTORY: Renal failure PROCEDURE: Maximal barrier technique was utilized. After informed consent, the skin overlying a suit able path to the lower pole of the left kidney was localized using CT guidance, the skin was prepped and draped. Lidocaine was used for local anesthesia. A skin baljinder made with a scalpel. Using CT sergio dance, a 17-gauge needle was advanced into in position at the lateral and inferior cortex of the left kidney where coaxial placement of an 18-gauge needle was used and core biopsy obtained. Patient's b reathing was inconsistent. Three passes with core biopsy made in total. Hemostasis was achieved. Th ere was no immediate complication and patient remained in stable condition. Specimen submitted to Pedro garsia. IMPRESSION: Status post CT guided core biopsy of left renal cortex, pathology pending. This procedur e performed by the undersigned.
[2017-09-25] MEDS: ACETAMINOPHEN TAB 500 MG TAB PO PRN ×2 (15:26→21:20)
--- NOTE | 2017-09-25 16:43 | P.PN ---
Subjective Progress Note Date: 09/25/17 Principal diagnosis: Abdominal pain The patient is seen after kidney biopsy. He is currently reporting that his abdominal pain is improved. The patient has not had a bowel movement since admission, no diarrhea reported. No nausea or vomiting. He is eager to try to eat a regular diet. Objective - Vital Signs Vital signs: Vital Signs Temp 98.1 F 09/25/17 07:00 Pulse 75 09/25/17 15:39 Resp 16 09/25/17 13:05 BP 143/85 09/25/17 15:39 Pulse Ox 98 09/25/17 15:39 Intake & Output 09/24/17 09/25/17 09/25/17 18:59 06:59 18:59 Intake Total 1850 690 Output Total 2170 475 2850 Balance -320 -475 -2160 Intake: IV 50 Intake, IV Titration 450 Amount Desmopressin Acetate 24 50 mcg In Sodium Chloride 0. 9% 50 ml @ 200 mls/hr IVPB ONCE ONE Rx#: [id number] Sodium Chloride 0.45% 1, 400 000 ml @ 75 mls/hr IV . [id number] Rx#:[id number] Oral 1800 240 Output: Urine 2170 475 2850 Other: Voiding Method Urinal # Voids 3 1 - Exam On physical examination, patient appears comfortable in no apparent distress. HEENT: Unremarkable. Conjunctivae pink. Sclerae anicteric. Oral cavity no lesions. NECK: No JVD or lymph node enlargement. CHEST: Clear to auscultation. HEART: Regular rate and rhythm. ABDOMEN: Soft. Bowel sounds are positive. No organomegaly. Mild tenderness in the right lower quadrant, with lidocaine patch in place. No guarding or rigidity. EXTREMITIES: No pedal edema. SKIN: No rashes. NEUROLOGIC: Alert and oriented x3. No focal deficits. - Labs CBC & Chem 7: 09/23/17 07:53 09/25/17 07:40 Labs: Abnormal Lab Results - Last 24 Hours (Table) 09/25/17 Range/Units 07:40 Sodium 146 H (137-145) mmol/L Potassium 5.4 H (3.5-5.1) mmol/L Chloride 112 H (98-107) mmol/L BUN 33 H (9-20) mg/dL Creatinine 3.04 H (0.66-1.25) mg/dL Assessment and Plan (1) Abdominal pain Narrative/Plan: Abdominal pain of unclear etiology, may be related to gastritis and duodenitis seen on EGD. Other studies include KUB, ultrasound and computed tomography scan which were negative for acute pathology. Current Visit: Yes Status: Acute Code(s): R10.9 - UNSPECIFIED ABDOMINAL PAIN SNOMED Code(s): 54783802 Plan: Continue supportive care Okay for diet Continue famotidine Await pathology from biopsies from EGD Nephrology following given acute rise in creatinine with kidney biopsy performed today Tylenol for pain control with topical lidocaine patch ordered Thank you for allowing us to participate in the care of this patient we will continue to follow
--- NOTE | 2017-09-25 17:25 | P.PN ---
Subjective Progress Note Date: 09/25/17 Progress note being dictated for Dr. Wynn Interval history:Patient is a 32-year-old male without significant past history came to ER with complaints of abdominal pain mainly in the right upper quadrant which has been present for the past 5-6 days. Pain is intermittent and crampy. Patient has been playing nauseated and no episodes of vomiting otherwise. Denied diarrhea. Denied any fever or chills. Denied any jaundice. No complaints of chest pain or shortness of breath. Patient has been taking Aleve to improve pain for the past 3 days. Patient notices some darker stools recently. No radiation of the pain. No alcohol use. Patient otherwise a tobacco user and caffeine drinker. No cough or sputum production. KUB x-ray showed nonspecific abdominal. there are few air fluid levels prominent small bowel loops in the abdomen which could be seen with a antritis or ileus. Possible obstruction cannot be excluded. Ultrasound kidney showed no hydronephrosis is evident bilaterally. Ultrasound ABDOMEN showed no acute process CT abdomen and pelvis without contrast showed no bowel obstruction. no suspicious acute abdominal findings. Hemoglobin 14.1 BUN 24 , creatinine 2.4 2017 Patient is still having right upper quadrant pain. Patient was seen by GI and recommended EGD tomorrow. Otherwise renal function worsened with creatinine increased to 2.6. Nephrology has seen the patient. Continue with IV fluids and repeat creatinine level tomorrow. No fever no chills. No nausea vomiting. Tolerating oral diet. No other acute overnight issues. 2017 Patient had EGD done today showed mild gastritis and mild duodenitis. Otherwise right upper quad pain is slightly better. Creatinine increased to 2.9 today. Patient is being continued on IV fluids and nephrology is his following. No complaints of chest pain or shortness of breath. No nausea vomiting or abdominal pain. Tolerating oral diet. Current medications reviewed 09/25/2017 maintained on IV fluid hydration, renal function continues to worsen , creatinine currently 3.04. No nausea, or vomiting. Denies diarrhea. No abdominal pain. Awaiting renal biopsy. Objective - Vital Signs Vital signs: Vital Signs Temp 98.1 F 09/25/17 07:00 Pulse 63 09/25/17 07:00 Resp 18 09/25/17 07:00 BP 132/77 09/25/17 07:00 Pulse Ox 99 09/25/17 07:00 Intake & Output 09/24/17 09/25/17 09/25/17 18:59 06:59 18:59 Intake Total 1850 50 Output Total 2170 475 2350 Balance -320 -208 -2300 Intake: IV 50 Intake, IV Titration 50 Amount Desmopressin Acetate 24 50 mcg In Sodium Chloride 0. 9% 50 ml @ 200 mls/hr IVPB ONCE ONE Rx#: [id number] Oral 1800 Output: Urine 2170 475 2350 Other: # Voids 3 1 - Exam PHYSICAL EXAMINATION: Patient is lying in the bed comfortably, no acute distress, awake alert and oriented.. HEENT: Normocephalic. Neck is supple. Pupils reactive. Nostrils clear. Oral cavity dry. Neck reveals no JVD, carotid bruits, or thyromegaly. CHEST EXAMINATION: Trachea is central. Symmetrical expansion. Lung potter clear to auscultation and percussion. CARDIAC: Normal S1, S2 with no gallops. No murmurs ABDOMEN: Soft. Mild right upper quadrant tenderness. Bowel sounds normal. No organomegaly. No abdominal bruits. Extremities: reveal no edema. No clubbing or cyanosis Neurologically awake, alert, oriented x3 with well-coordinated movements. No focal deficits noted Skin: No rash or skin lesions. Psychiatric: Coperative. Nonsuicidal Musculoskeletal: No joint swelling or deformity. Normal range of motion. - Labs CBC & Chem 7: 09/23/17 07:53 09/25/17 07:40 Labs: Abnormal Lab Results - Last 24 Hours (Table) 09/24/17 09/25/17 Range/Units 11:40 07:40 Sodium 146 H (137-145) mmol/L Potassium 5.4 H (3.5-5.1) mmol/L Chloride 112 H (98-107) mmol/L BUN 33 H (9-20) mg/dL Creatinine 3.04 H (0.66-1.25) mg/dL Phosphorus 5.4 H (2.5-4.5) mg/dL Lactate Dehydrogenase 646 H (313-618) U/L Assessment and Plan Assessment: Right upper quadrant pain. Likely due to duodenitis. Workup including KUB x- ray, ultrasound abdomen and CT abdomen is negative. No elevated liver enzymes, lipase and amylase. Status post EGD showed mild gastritis and mild duodenitis.. Acute kidney injury. Due to volume depletion and possible medication induced- nonsteroidal. Not sure whether patient has underlying chronic kidney disease. No protein urine. Renal biopsy pending. Mild hyperkalemia secondary to renal failure. Plan: Continue on current medication regime ,monitoring and symptomatic treatment. Maintain IV fluid hydration Awaiting renal biopsy. Mildly elevated potassium and sodium. close monitoring of electrolytes and renal function with repeat labs ordered for a.m. discharge planning in progress for tomorrow pending nephrology clearance. The impression and plan of care has been dictated as directed. : I performed a history and examination of this patient, discussed the same with the dictator. I agree with the dictator's note ,documented as a scribe. Any additional findings or plans will be noted.
[2017-09-25 22:42] VITALS: RESP 16
[2017-09-26] MEDS: SODIUM CHLORIDE 0.45% 1,000 ML IV SCH (04:46)
[2017-09-26] MEDS: LIDOCAINE 5% PATCH TOPICAL SCH (08:15)
[2017-09-26] MEDS: ACETAMINOPHEN TAB 500 MG TAB PO PRN (08:22)
--- NOTE | 2017-09-26 08:35 | P.PN ---
Subjective Progress Note Date: 09/26/17 Principal diagnosis: Abdominal pain Feels well. Anticipate discharge today. Status post kidney biopsy. Morning chemistries pending. Afebrile. Objective - Vital Signs Vital signs: Vital Signs Temp 97.3 F L 09/26/17 06:08 Pulse 63 09/26/17 06:08 Resp 16 09/26/17 06:08 BP 155/92 09/26/17 06:08 Pulse Ox 99 09/26/17 06:08 Intake & Output 09/25/17 09/26/17 09/26/17 18:59 06:59 18:59 Intake Total 1570 Output Total 3552024 450 Balance -1979 Weight 79 kg Intake: Intake, IV Titration 850 Amount Desmopressin Acetate 24 50 mcg In Sodium Chloride 0. 9% 50 ml @ 200 mls/hr IVPB ONCE ONE Rx#: [id number] Sodium Chloride 0.45% 1, 800 000 ml @ 75 mls/hr IV . [id number] [facility] Rx#:[id number] Oral 720 Output: Urine 3549 Other: Voiding Method Urinal Urinal # Voids 1 - Exam General appearance: The patient is alert, oriented, in no acute distress. HET: Head is normocephalic and atraumatic. Pupils are equal and reactive. Oropharynx is clear without lesions. Neck: Supple without lymphadenopathy. Trachea midline. Heart: S1 S2. Regular rate and rhythm. Lungs: No crackles or wheezes are heard. Abdomen: Soft, nontender, nondistended with bowel sounds. No peritoneal signs. No palpable organomegaly or masses. Extremities: Normal skin color and turgor. No cyanosis, rash, ulceration, clubbing, or edema. Radial and pedal pulses are 2/4 bilaterally. Neurological: No focal deficits. Strength and sensation are grossly intact. - Labs CBC & Chem 7: 09/23/17 07:53 09/25/17 07:40 Assessment and Plan (1) Abdominal pain Current Visit: Yes Status: Acute Code(s): R10.9 - UNSPECIFIED ABDOMINAL PAIN SNOMED Code(s): 19729761 Plan: 1. Abdominal pain has improved. Status post EGD findings of gastritis and duodenitis. Continue with famotidine on discharge. 2. Agreeable for discharge from a GI standpoint. Follow-up in office in 2 weeks for reevaluation. Assessment and plan a care discussed with Dr. Swann
[2017-09-26 09:13] LABS: Calcium 9.4 mg/dL (8.4-10.2); Potassium 4.7 mmol/L (3.5-5.1)
--- NOTE | 2017-09-26 13:17 | P.PN ---
Subjective patient is seen in follow-up for acute kidney injury. Creatinine peaked at 3.04 this admission and is down to 2.4 today. He is tolerating oral intake. No abdominal pain. No vomiting or diarrhea. Hemodynamically stable. He had a kidney biopsy done yesterday. No hematuria. Vital signs are stable. General: The patient appeared well nourished and normally developed. HEENT: Head exam is unremarkable. Neck is without jugular venous distension. LUNGS: Lungs are clear to auscultation and percussion. Breath sounds decreased. HEART: Rate and Rhythm are regular. First and second heart sounds normal. No murmurs, rubs or gallops. ABDOMEN: Abdominal exam reveals normal bowel sounds. Non-tender and non- distended. No evidence of peritonitis. EXTREMITITES: No clubbing, cyanosis, or edema. Objective - Vital Signs Vital signs: Vital Signs Temp 97.3 F L 09/26/17 06:08 Pulse 63 09/26/17 06:08 Resp 16 09/26/17 06:08 BP 155/92 09/26/17 06:08 Pulse Ox 99 09/26/17 06:08 Intake & Output 09/25/17 09/26/17 09/26/17 18:59 06:59 18:59 Intake Total 1570 150 Output Total 3549 2024 135 Balance -1979 -2024 Weight 79 kg 79 kg Intake: Intake, IV Titration 850 150 Amount Desmopressin Acetate 24 50 mcg In Sodium Chloride 0. 9% 50 ml @ 200 mls/hr IVPB ONCE ONE Rx#: [id number] Sodium Chloride 0.45% 1, 800 150 000 ml @ 75 mls/hr IV . [id number] [facility] Rx#:[id number] Oral 720 Output: Urine 3550 2024 1350 Other: Voiding Method Urinal Urinal Urinal # Voids 1 1 - Labs CBC & Chem 7: 09/23/17 07:53 09/26/17 07:57 Labs: Abnormal Lab Results - Last 24 Hours (Table) 09/26/17 Range/Units 07:57 Chloride 108 H (98-107) mmol/L BUN 31 H (9-20) mg/dL Creatinine 2.48 H (0.66-1.25) mg/dL Assessment and Plan Plan: assessment: 1. Nonoliguric acute kidney injury likely secondary to ATN from nonsteroidals. Creatinine up to 3.04 yesterday - down to 2.4 today. Urinalysis is benign. Unknown baseline creatinine. 2. Mild hypernatremia from lack of oral water intake. Improved. 3. Mild hyperkalemia from acute kidney injury. No evidence of hyperglycemia or metabolic acidosis. Improved. 4. Right upper quadrant pain status post EGD which revealed mild gastritis and duodenitis. Resolved. Now tolerating oral intake. Plan: Hep-Lock IV fluids. Stable to be discharged home from nephrology standpoint. Follow-up outpatient in 1-2 weeks.
[2017-09-26 14:36] LABS: C-ANCA <1:20 Titer (<1:20); P-ANCA <1:20 Titer (<1:20)
[2017-09-26 15:25] VITALS: BP 150/99; PULSE 71; TEMP 98.2
--- NOTE | 2017-09-26 19:06 | P.DS ---
Providers Date of admission: 09/22/17 13:56 Expected date of discharge: 09/26/17 Attending physician: Hollis Wynn Consults: 09/22/17 12:48 Consult Physician Routine Consulting Provider: Shiloh Ramirez Consult Reason/Comments: magali, unclear etiology Do you want consulting provider notified?: Yes GI, Primary care physician: Stated None [facility] Course: Final Diagnoses: Right upper quadrant pain. Likely due to duodenitis. Workup including KUB x- ray, ultrasound abdomen and CT abdomen is negative. No elevated liver enzymes, lipase and amylase. Status post EGD showed mild gastritis and mild duodenitis.. Acute kidney injury,ATN. Due to volume depletion and possible medication induced-nonsteroidal. Not sure whether patient has underlying chronic kidney disease. No protein urine. Status post Renal biopsy, cx pending. Mild hyperkalemia secondary to renal failure. Hospital course:Patient is a 32-year-old male without significant past history came to ER with complaints of abdominal pain mainly in the right upper quadrant which has been present for the past 5-6 days. Pain is intermittent and crampy. Patient has been playing nauseated and no episodes of vomiting otherwise. Denied diarrhea. Denied any fever or chills. Denied any jaundice. No complaints of chest pain or shortness of breath. Patient has been taking Aleve to improve pain for the past 3 days. Patient notices some darker stools recently. No radiation of the pain. No alcohol use. Patient otherwise a tobacco user and caffeine drinker. No cough or sputum production. KUB x-ray showed nonspecific abdominal. there are few air fluid levels prominent small bowel loops in the abdomen which could be seen with a antritis or ileus. Possible obstruction cannot be excluded. Ultrasound kidney showed no hydronephrosis is evident bilaterally. Ultrasound ABDOMEN showed no acute process CT abdomen and pelvis without contrast showed no bowel obstruction. no suspicious acute abdominal findings. Hemoglobin 14.1 BUN 24 , creatinine 2.4 82017 Patient is still having right upper quadrant pain. Patient was seen by GI and recommended EGD tomorrow. Otherwise renal function worsened with creatinine increased to 2.6. Nephrology has seen the patient. Continue with IV fluids and repeat creatinine level tomorrow. No fever no chills. No nausea vomiting. Tolerating oral diet. No other acute overnight issues. 2017 Patient had EGD done today showed mild gastritis and mild duodenitis. Otherwise right upper quad pain is slightly better. Creatinine increased to 2.9 today. Patient is being continued on IV fluids and nephrology is his following. No complaints of chest pain or shortness of breath. No nausea vomiting or abdominal pain. Tolerating oral diet. Current medications reviewed 09/25/2017 maintained on IV fluid hydration, renal function continues to worsen , creatinine currently 3.04. No nausea, or vomiting. Denies diarrhea. No abdominal pain. Awaiting renal biopsy. 09/26/17 tolerated biopsy well, cultures pending. Denies abdominal pain. Good diet intake no nausea vomiting or diarrhea. Renal function continues to improve , creatinine down to 2.48. No hematuria. Cleared by consults for discharge. Patient is being discharged home in a stable condition with guarded prognosis. Exam Patient is alert and oriented 3, no acute distress. CHEST EXAM: Lung potter clear to auscultation and percussion. CARDIAC: Normal S1, S2 with no gallops. No murmurs ABDOMEN: Soft. Nontender, nondistended. Bowel sounds normal. Extremities: reveal no edema. No clubbing or cyanosis Neurologically No focal deficits noted The impression and plan of care has been dictated as directed. : I performed a history and examination of this patient, discussed the same with the dictator. I agree with the dictator's note ,documented as a scribe. Any additional findings or plans will be noted. Time taken: 35 minutes Patient Condition at Discharge: Stable Plan - Discharge Summary Discharge Rx Participant: Yes New Discharge Prescriptions: New Acetaminophen Tab [Tylenol] 1,000 mg PO Q6HR PRN tab PRN Reason: Fever And/ Or Pain Famotidine [Pepcid] 20 mg PO DAILY #0 tab Discontinued Naproxen Sodium [Aleve] 220 mg PO Q12HR PRN PRN Reason: Pain Discharge Medication List Acetaminophen Tab [Tylenol] 1,000 mg PO Q6HR PRN tab 09/26/17 [Rx] Famotidine [Pepcid] 20 mg PO DAILY #0 tab 09/26/17 [Rx] Follow up Appointment(s)/Referral(s): Chidi Álvarez NPC [REFERRING] - 09/29/17 8:00 am Sandro Gr DO [STAFF PHYSICIAN] - 10 Days (office will call you with your appointment time) Dionicio Swann MD [STAFF PHYSICIAN] - 10/17/17 3:30 pm Ambulatory/Diagnostic Orders: Basic Metabolic Panel [LAB.AMB] Time Frame: 3 Days, Location: None Selected Patient Instructions/Handouts: Gastritis (DC), Acute Kidney Injury (DC), Duodenitis (DC) Activity/Diet/Wound Care/Special Instructions: DR. GR'S OFFICE WILL CALL YOU WITH APPOINTMENT DATE AND TIME Discharge Disposition: HOME SELF-CARE
== END 2017-09-26 16:51 | disposition home or self-care (01) | DRG 391 ==
LOC: EC 10:35 → 4MS4W 13:56
PROVIDERS: ADMIT Internal Medicine; ATTEND Internal Medicine
PROC: 0DB78ZX Excision of Stomach, Pylorus, Via Natural or Artificial Opening Endoscopic, Diagnostic (ICD-10-PCS; principal; 2017-09-24 07:15)
PROC: 0DB98ZX Excision of Duodenum, Via Natural or Artificial Opening Endoscopic, Diagnostic (ICD-10-PCS; principal; 2017-09-24 07:15)
PROC: 0DB58ZX Excision of Esophagus, Via Natural or Artificial Opening Endoscopic, Diagnostic (ICD-10-PCS; principal; 2017-09-24 07:15)
DX: K29.80 Duodenitis without bleeding (principal); N17.0 Acute kidney failure with tubular necrosis; E87.0 Hyperosmolality and hypernatremia; E86.9 Volume depletion, unspecified; E87.5 Hyperkalemia; F17.200 Nicotine dependence, unspecified, uncomplicated; K29.70 Gastritis, unspecified, without bleeding; T39.395A Adverse effect of other nonsteroidal anti-inflammatory drugs [NSAID], initial encounter; Z83.3 Family history of diabetes mellitus; Z79.1 Long term (current) use of non-steroidal anti-inflammatories (NSAID)
CPT/HCPCS: 36415; 43239; 74018; 74176; 76700; 76770; 77012; 80048; 80053; 81003; 82550; 83615; 83690; 83883; 84100; 84550; 85025; 85610; 86038; 86160; 86225; 86255; 86803; 86850; 86900; 86901; 87205; 88305; 88312; 93005; 99285